=== PATIENT | female | born 1970 | race Caucasian/White ===

== ENCOUNTER → 2016-11-25 | Outpatient (CLI) | payer BC ==
[2016-11-25 16:08] LABS: RHEUMATOID FACTOR < 10.0 U/mL (0-15)
== END | disposition home or self-care (01) ==
LOC: C.LAB1850 14:22
PROVIDERS: ATTEND Family Medicine
DX: I73.00 Raynaud's syndrome without gangrene (principal)

== ENCOUNTER → 2017-04-20 | Outpatient (CLI) | payer BC ==
--- NOTE | 2017-04-21 07:58 | MAMMOGRAPHY REPORT ---
BILATERAL DIGITAL SCREENING MAMMOGRAM TOMOSYNTHESIS WITH CAD: 04/20/2017 CLINICAL HISTORY: Routine screening. TECHNIQUE: Breast tomosynthesis in addition to standard 2D mammography was performed. Current study was also evaluated with a Computer Aided Detection (CAD) system. COMPARISON: Comparison is made to exams dated: 09/17/2015 ultrasound, 09/17/2015 mammogram, 09/09/2015 ammogram - [facility], and 08/05/2009 mammogram. BREAST COMPOSITION: The tissue of both breasts is heterogeneously dense, which may obscure small mas ses. FINDINGS: An asymmetry in the lateral left breast is less prominent comparing to last years mammogra m. No developing mass, architectural distortion or cluster of suspicious microcalcifications is seen in either breast. IMPRESSION: ACR BI-RADS CATEGORY 2: BENIGN There is no mammographic evidence of malignancy. A 1 year screening mammogram is recommended. The pa tient will receive written notification of the results. Approximately 10% of breast cancers are not detected with mammography. A negative mammographic report should not delay biopsy if a clinically suggestive mass is present. Kaley Alston M.D. ay/:04/20/2017 15:00:38 Family Psychologist: Vanessa SULTANA(Tavo)(Dasia), [facility] letter sent: Normal 1/2 BI-RADS Code: ACR BI-RADS Category 2: Benign
== END | disposition home or self-care (01) ==
LOC: C.MAMM 09:39
PROVIDERS: ATTEND Obstetrics & Gynecology
DX: Z12.31 Encounter for screening mammogram for malignant neoplasm of breast (principal)

== ENCOUNTER → 2018-01-13 | Outpatient (CLI) | payer OTHER ==
--- NOTE | 2018-01-13 17:39 | DIAGNOSTIC IMAGING REPORT ---
R SHOULDER MIN 2 VIEWS ROUTINE HISTORY: 47 years-old Female PAIN IN RT SHOULDER acute right shoulder pain COMPARISON: None available TECHNIQUE: 2 views of the right shoulder FINDINGS: No significant degenerative changes about the AC joint. There is mild to moderate marginal spurring about the humeral head without significant glenohumeral joint space narrowing, acute fracture or subluxation. Imaged lung pagan appear clear. IMPRESSION: 1. No acute fracture or dislocation. 2. Mild to moderate osteophytic spurring about the inferior humeral head and humeral neck without significant glenohumeral joint space narrowing. The above report was generated using voice recognition software. It may contain grammatical, syntax or spelling errors. Electronically signed by: Adalid Carlton M.D. 01/13/2018 5:38 PM Dictated Date/Time: 01/13/2018 5:36 PM
--- NOTE | 2018-01-13 18:05 | DIAGNOSTIC IMAGING REPORT ---
THORACIC SPINE 3 VIEWS ROUTINE CLINICAL HISTORY: 47 years-old Female presenting with PAIN IN RT SHOULDER. TECHNIQUE: 3 views of the thoracic spine were obtained. COMPARISON: None. FINDINGS: Normal thoracic kyphosis. Vertebral bodies maintain normal height and alignment allowing for limited visualization of the upper thoracic spine due to overlapping tissues. Intervertebral disc heights grossly preserved though disc osteophyte complexes noted to varying degrees at every level. Similar degenerative changes evident in the cervical spine, which demonstrates loss of normal cervical lordosis, possibly positional or degenerative in etiology. And thoracic spine, no gross evidence of osseous neural foraminal narrowing. No compression deformity or gross subluxation. No significant scoliotic curvature. Visualized portion of the thorax and upper abdomen normal. IMPRESSION: 1. Multilevel degenerative changes of the thoracic spine without radiographic evidence of osseous neural foraminal narrowing. 2. No radiographic evidence of acute osseous injury allowing for limited visualization of the upper thoracic spine. Electronically signed by: Yousif Hutton M.D. 01/13/2018 6:04 PM Dictated Date/Time: 01/13/2018 6:02 PM
== END | disposition home or self-care (01) ==
LOC: C.RAD1850 16:34
PROVIDERS: ATTEND Family Medicine
DX: M25.511 Pain in right shoulder (principal); M54.14 Radiculopathy, thoracic region